=== PATIENT | male | born 1965 | race Caucasian/White ===

== ENCOUNTER 2018-06-10 10:49 | Observation (INO) ==
--- NOTE | 2018-05-31 08:51 | PAT Medication Instructions ---
Medication Instructions Date of Service May 31, 2018 Home Medications cimetidine 400 mg PO DAILY NEEDED clonazepam 1 mg PO TID fluticasone 2 spray INTRANASAL QAM hydroxyzine HCl 25 mg PO Q12 NEEDED Tylenol-Codeine #3 1 tab PO QAM DO NOT take the morning of surgery hydroxyzine HCl 25 mg PO Q12 NEEDED fluticasone 2 spray INTRANASAL QAM Take morning of surgery With a small sip of water, OTHERWISE NOTHING TO EAT OR DRINK AFTER MIDNIGHT: clonazepam 1 mg PO TID cimetidine 400 mg PO DAILY NEEDED Tylenol-Codeine #3 1 tab PO QAM (stop 4 hours before surgery) Take evening before surgery hydroxyzine HCl 25 mg PO Q12 NEEDED clonazepam 1 mg PO TID Other Notes If you have any questions please call us at [phone] or [phone] or [phone] or [phone]
--- NOTE | 2018-05-31 10:10 | Anesthesiology Consultation ---
Date of Service May 31, 2018 Assessment & Plan (1) Encounter for pre-operative examination: Chart Review Chart Review: Acceptable Risk for Surgery and Patient seen in Pre Admission Testing Consults Requested none Teaching & Discussion Pre-Anesthesia Teaching/Discussion Notes: Instructed NPO after midnight before surgery, except medications with 15 cc of water. Medication instructions provided according to the PAT guidelines. History Surgery Operation Date: 06/10/18 07:30 Proposed Procedures p L5-S1 Discectomy - Edward Rich DO Height/Weight Height: 6 ft Weight: 95.6 kg Allergies Allergy/AdvReac Type Severity Reaction Status Date / Time pantoprazole Allergy Severe LEFT SIDED Verified 05/30/18 08:07 CHEST PAIN paroxetine Allergy Severe SHORTNESS Verified 05/30/18 08:07 OF BREATH tramadol Allergy Severe HEAD Verified 05/30/18 08:07 SWELLS, SEES HALO amoxicillin Allergy Mild CHEST Verified 05/30/18 08:07 TIGHTNESS Cipro Allergy Mild UNKNOWN Verified 04/11/16 08:40 ciprofloxacin Allergy Mild UNKNOWN Verified 05/30/18 08:07 citalopram Allergy Mild ANXIETY Verified 05/30/18 08:07 povidone-iodine Allergy Mild RASH WITH Verified 05/30/18 08:07 TOPICAL BETADINE clarithromycin Allergy Unknown PT DOESN'T Verified 05/30/18 08:07 KNOW nizatidine Allergy Unknown GI SYMPTOMS Verified 05/30/18 08:07 NSAIDS (Non-Steroidal Allergy Unknown GI UPSET Verified 05/30/18 08:07 Anti-Inflamma HEART RACES omeprazole Allergy Unknown UNKNOWN Verified 05/30/18 08:07 Penicillins Allergy Unknown HARD TO Verified 05/30/18 08:07 BREATH Quinolones Allergy Unknown PT NOT SURE Verified 05/30/18 08:07 ranitidine Allergy Unknown PT CAN'T Verified 05/30/18 08:07 REMEMBER metronidazole AdvReac Unknown BP Unverified 05/30/18 08:07 ELEVATED DIARRHEA AND ANXIETY Medications Home Medications Medication Instructions Recorded Confirmed Last Taken cimetidine 400 mg PO DAILY PRN 05/28/18 05/30/18 Unknown clonazepam 1 mg PO TID 05/28/18 05/30/18 Unknown fluticasone 2 spray INTRANASAL QAM 05/28/18 05/30/18 Unknown hydroxyzine HCl 25 mg PO Q12 PRN 05/28/18 05/30/18 Unknown Tylenol-Codeine #3 1 tab PO QAM 05/31/18 05/31/18 Unknown Past Medical History Medical History Disc herniation (Acute) Anxiety GERD (gastroesophageal reflux disease) Bradycardia Chronic back pain PAIN TO LEFT LEG History of anesthesia reaction "SLOW TO WAKE UP WITH ANESTHESIA" Migraine Temporomandibular joint disorder RIGHT SIDE CLICKS HAS NEVER LOCKED Tremor WITH ANXIETY PROBLEMS Past Family History Family History Father Family history of diabetes mellitus Sister Family history of diabetes mellitus Past Surgical History Surgical History H/O hand surgery LEFT HAND-THUMB NAIL REMOVAL History of cholecystectomy History of colonoscopy History of cystoscopy History of esophagogastroduodenoscopy (EGD) History of lymph node dissection of left axilla 2/2 CAT SCRATCH FEVER History of tooth extraction WISDOM TEETH Past Anesthesia History No Hx of Anesthesia Complications (STATES THAT HE IS SLOW TO WAKE THOUGH) and No Family Hx of Anesthesia Complications History of PONV Yes Motion Sickness Screening History of Motion Sickness: No Social History Smoking Status: Former smoker Smoking cigarettes per day: FOR A COUPLE MONTHS IN HIS TEENS Do You Dip or Chew Tobacco: Yes (1 CAN A DAY) Hx Alcohol Use: No Hx Substance Use: No substance use type: does not use Exercise / Class Metabolic Activity III < 4 Walking/Shop/Light housework (Normally very active and walks 5 miles per day. Hasn't been able to walk much for the last 4 days due to severe day. Normally able to climb FOS. Denies CP or SOB. ) Review of Systems Patient denies chest pain, shortness of breath, dyspnea on exertion, reflux ( controlled by medications), cough, wheezing, palpitations. +joint pain (back and hips) Physical Exam Vital Signs BP: 129/77 P: 50 R: 20 T: 98.4 SPO2: 99% on RA Constitutional Anxious ENMT Thyromental Distance: > or= 3.5 Finger Breadths (3.5) Mallampati Class: I Neck normal visual inspection and trachea midline; neck extension not limited Respiratory normal respiratory effort Auscultation: lungs clear to auscultation bilaterally Cardiovascular Rate/Rhythm: regular rate and regular rhythm Heart Sounds: no murmur Vessels: no carotid bruit Neurologic moves all extremities Psychiatric Orientation: alert and oriented x 3 Testing Electrocardiogram Date: 05/31/18 Findings: + SB @ (51) Moderate voltage criteria for LVH, may be normal variant. Early repolarization. When compared with ECG of 06/17/10, T-wave amplitude has increased in anterior leads. Chest X-Ray Date: 05/31/18 Findings: + NAD FINDINGS: Cardiomediastinal and hilar silhouettes are within normal limits. No pneumothorax, pleural effusion, focal airspace consolidation or overt pulmonary edema. Degenerative changes of the shoulders and spine. Prior cholecystectomy. IMPRESSION: No acute process. Laboratory Results 05/31/18 10:40 05/31/18 10:40 PT 10.2 Seconds (9.0-12.0) 05/31/18 10:40 INR 1.0 (0.9-1.1) 05/31/18 10:40 APTT 23.1 Seconds (21.0-31.0) 05/31/18 10:40
--- NOTE | 2018-05-31 11:09 | XRay Report ---
XR chest Pre-admission PA/Lat HISTORY: 53 years-old Male pat preoperative exam. No acute chest complaints COMPARISON: Chest radiographs 07/28/2013 TECHNIQUE: PA and lateral views of the chest FINDINGS: Cardiomediastinal and hilar silhouettes are within normal limits. No pneumothorax, pleural effusion, focal airspace consolidation or overt pulmonary edema. Degenerative changes of the shoulders and spin e. Prior cholecystectomy. IMPRESSION: No acute process. The above report was generated using voice recognition software. It may contain grammatical, syntax o r spelling errors. Electronically signed by: Jackson Yang M.D. 05/31/2018 11:08 AM
[2018-05-31 11:45] LABS: Basophils # (auto) 0.01 K/uL (0-0.2); Basophils % (auto) 0.1 %; Eosinophils % (auto) 1.3 %; Immature Granulocytes # (auto) 0.01 K/uL (0.00-0.02); Immature Granulocytes % (auto) 0.1 %; Lymphocytes # (auto) 1.35 K/uL (1.2-3.4); Lymphocytes % (auto) 18.1 %; Mean Corpuscular Hgb Conc 33.3 g/dL (32-36); Mean Corpuscular Volume 92.5 fL (80-100); Mean Platelet Volume 10.9 fL (7.4-10.4); Monocytes # (auto) 0.97 K/uL (0.11-0.59); Neutrophils # (auto) 5.03 K/uL (1.4-6.5); Neutrophils % (auto) 67.4 %; Platelet Count 177 K/uL (130-400); RDW Coefficient of Variation 13.3 % (11.5-14.5); RDW Standard Deviation 45.1 fL (36.4-46.3); Red Blood Count 4.54 M/uL (4.7-6.1); White Blood Count 7.47 K/uL (4.8-10.8)
[2018-05-31 11:53] LABS: BUN Creatinine Ratio 21.9 (10-20); Calcium 8.8 mg/dl (8.5-10.1); Creatinine Clr Calc Pharmacy 99.3 ml/min; Est GFR (African American) 96.1; Est GFR (Non-African American) 82.9; Potassium 4.1 mmol/L (3.5-5.1)
[2018-05-31 12:10] LABS: Partial Thromboplastin Ratio 0.9; Partial Thromboplastin Time 23.1 Seconds (21.0-31.0); Prothrombin Time 10.2 Seconds (9.0-12.0)
--- NOTE | 2018-06-07 12:49 | History and Physical Report ---
DATE OF ADMISSION: 06/10/2018 CHIEF COMPLAINT: Back and lower extremity difficulty. HISTORY OF PRESENT ILLNESS: Ravinder is a pleasant gentleman, 53 years of age. He is compromised. He has a large disc herniation of lumbar spine. He has failed conservative measures. He is set up for surgical intervention of the lumbar spine discectomy, L5-S1. PAST MEDICAL HISTORY: Positive for heart disease, anesthetic issues, anxiety. PAST SURGICAL HISTORY: [place] teeth, thumb surgery, cholecystectomy. ALLERGIES: LISTED. SOCIAL HISTORY: He is single. No alcohol, tobacco. REVIEW OF SYSTEMS: Denies any blurred vision, double vision, tinnitus or vertigo. No chest pain, but does have some palpitations. No asthma, wheezing. No nausea, vomiting. No urgency, frequency. He admits to some numbness and tingling, weakness and muscle pain. He also states that he has a weak immune system. MEDICATIONS: Clonazepam, nasal spray for sinus issues and one medication for stomach ulcers. OBJECTIVE: GENERAL: He is 5 feet 9 inches. He is 232. He is in distress. VITAL SIGNS: Blood pressure 130/80, pulse 80, respirations 16. HEENT: Essentially normal. CARDIAC: Normal S1, S2. No S3. LUNGS: Clear to auscultation. No rales, rhonchi, wheezing. ABDOMEN: Soft, nontender. MUSCULOSKELETAL: He does have some pain with straight leg raising. He has pain with percussion. He has slight loss of sensation. IMAGES: Demonstrated disc herniation, L5-S1. IMPRESSION: Disk herniation, L5-S1. PLAN: Includes instructions, precautions, education and we are scheduling him for surgery. He is well informed. He has been well counseled on the pros and minuses of surgical intervention.
--- NOTE | 2018-06-10 09:24 | History & Physical Bridge Note ---
Date of Service June 10, 2018 History & Physical Bridge Note I have examined the patient, reviewed the History & Physical and in the interval since the performance of the History & Physical I have noted the following changes of clinical significance: no changes noted
[~2018-06-10 10:49] MED LIST: CLINDAMYCIN 600 MG/54 ML BAG IV SCH; LIDOCAINE HCL 2% 2 ML VIAL/AMP(20MG/ML) INFIL ONE; LR 15ML/HR IV SCH; MIDAZOLAM HCL 1 MG/ML 2ML VIAL ONE; ONDANSETRON INJ 2 MG/ML 2 ML VIAL ONE; PROPOFOL IV EMULSION 10 MG/ML 20 ML VIAL IV ONE; ROCURONIUM BROMIDE 10 MG/ML 5 ML VIAL ONE; SODIUM CHLORIDE 0.9% 1000ML IV SCH; fentaNYL citrate 100 MCG/2 ML VIAL ONE
[2018-06-10] MEDS ORDERED: ePHEDrine sulfate 50 MG/ML AMP IV PRN (12:42)
[2018-06-10] MEDS ORDERED: ATROPINE SULFATE 0.1 MG/ML 10ML SYR IV PRN (12:42)
[2018-06-10] MEDS ORDERED: GELATIN SPONGE SZ 100 ONE (12:43)
[2018-06-10] MEDS ORDERED: BACITRACIN INJ 50,000 UNIT VIAL ONE (12:43)
[2018-06-10] MEDS ORDERED: VANCOMYCIN HCL 1000MG/20ML VIAL ONE (12:43)
[2018-06-10] MEDS ORDERED: THROMBIN FOR SOLN 20000 UNIT KIT ONE (12:43)
[2018-06-10] MEDS ORDERED: BUPIVACAINE/EPINEPHRINE 0.5% MPF 1:200,000 30 ML VIAL ONE (12:44)
[2018-06-10] MEDS ORDERED: HYDROmorphone INJ 2 MG/ML SYR/VIAL ONE (13:27)
--- NOTE | 2018-06-10 14:06 | Fluoroscopy Report ---
FL spine 1V any level CLINICAL HISTORY: L5-S1 DISCECTOMY COMPARISON STUDY: Lumbar spine MRI May 28, 2018. FLUOROSCOPY TIME: 1.4 seconds. FLUOROSCOPIC IMAGES: 1 FINDINGS: Single lateral image demonstrates surgical instruments directed toward the posterior alignm ent of the L5-S1 level. IMPRESSION: Fluoroscopic image demonstrating localization of the L5-S1 level. Electronically signed by: David Melara M.D. 06/10/2018 2:04 PM
--- NOTE | 2018-06-10 14:27 | Post Operative Brief Note ---
Immediate Post Op Note v1 Date of Surgery June 10, 2018 Pre & Post Diagnosis Operation Date: 06/10/18 12:40 Pre-Op Diagnosis: Disc Herniation L5-S1 Post-Op Diagnosis: Disc Herniation L5-S1 Procedure Operation Date: 06/10/18 12:40 Actual Procedures p L5-S1 Discectomy(Not Applicable) - Edward Rich DO Surgeon Edward Rich DO Electromedical Equipment Technician nancy Estimated Blood Loss 100 Findings Consistent with Post-Op Diagnosis Drains Hemovac Drain
[2018-06-10] MEDS ORDERED: HYDROmorphone INJ 1 MG/ML SYRINGE ONE (14:55)
[2018-06-10] MEDS: HYDROmorphone INJ 2 MG/ML SYR/VIAL IV PRN ×4 (14:56→15:24)
--- NOTE | 2018-06-10 15:08 | Operative Report ---
DATE OF OPERATION: 06/10/2018 PREOPERATIVE DIAGNOSIS: Disc herniation, lumbar spine, L5-S1. POSTOPERATIVE DIAGNOSIS: Disc herniation, lumbar spine, L5-S1. PROCEDURE: Included laminectomy and discectomy, L5-S1. SURGEON: Edward Rich DO STAFF EDUCATOR: Femi Duval PA-C. COMPLICATIONS: Zero. ESTIMATED BLOOD LOSS: 100. ANESTHETIC: General. DESCRIPTION OF PROCEDURE: The patient was taken to the operating room, a general intubated anesthetic provided to the patient, placed prone, prepped and draped sterile. We made a skin incision, fascial incision, using radiographic criteria and came right down on the L5-S1 interspace. We did an upgoing laminotomy on the left, downgoing foraminotomy exposing the nerve root. We went right off the facet joint. We found the disc at L5-S1. We retracted the dura in a medial direction. It was quite tedious. The disc was massive in its size. We then made an incision, took a good quantity of disc, then piecemealed several other small pieces of disc material. I probed up to the interspace above, down, underneath the nerve root, checked the dura. I looked very carefully and rigorously for any type of free fragment material and we cleaned out the area thought well. I irrigated, closed over vancomycin powder and Hemovac drain with 1 Vicryl suture, 2-0 subcuticular layer, 3-0 nylon on the skin, sterile dressing applied. The patient returned to PACU improved, stable. There were no complications. I attest to the content of the Intraoperative Record and any orders documented therein. Any exception s are noted below.
[2018-06-10] MEDS ORDERED: HYDROmorphone INJ 2 MG/ML SYR/VIAL IV PRN (15:38)
[2018-06-10] MEDS ORDERED: ACETAMINOPHEN 1,000 MG/100 ML VIAL IV ONE (15:38)
[2018-06-10] MEDS ORDERED: ACETAMINOPHEN 1000 MG/100 ML IV IV ONE (15:39)
--- NOTE | 2018-06-10 16:41 | XRay Report ---
XR chest 1V portable CLINICAL HISTORY: sob dyspnea COMPARISON STUDY: 05/31/2018 FINDINGS: The bones soft tissues and hemidiaphragms are normal. The cardiomediastinal silhouette is n ormal. The lungs are clear. The pulmonary vasculature is normal. IMPRESSION: Negative chest. The above report was generated using voice recognition software. It may contain grammatical, syntax or spelling errors. Electronically signed by: Dawit Graves M.D. 06/10/2018 4:39 PM
--- NOTE | 2018-06-10 17:04 | Anesthesiology Progress Note ---
Date of Service June 10, 2018 Anesthesia Post Procedure Vital Signs Vital Signs: Temp Pulse Pulse Resp BP Pulse Ox 06/10/18 16:40 54 L 13 150/93 H 100 06/10/18 16:30 50 L 13 131/88 100 06/10/18 16:20 36.7 C 51 L 13 145/77 H 99 06/10/18 16:10 58 L 21 147/89 H 100 06/10/18 16:00 49 L 13 148/92 H 100 06/10/18 15:50 48 L 16 143/87 H 100 06/10/18 15:40 45 L 15 143/80 H 99 06/10/18 15:30 47 L 15 133/82 99 06/10/18 15:20 56 L 12 135/82 99 06/10/18 15:10 63 15 139/82 100 06/10/18 15:00 65 16 133/78 100 06/10/18 14:50 66 20 142/81 H 100 06/10/18 14:44 36.1 C L 87 13 136/82 100 06/10/18 11:36 36.5 C 50 L 18 120/79 99 Pain Intensity Left Back: Pain Intensity: 6 Lower Back: Pain Intensity: 6 Notes Mental Status: alert / awake / arousable and participated in evaluation Patient Amnestic to Procedure: Yes Nausea / Vomiting: adequately controlled Pain: adequately controlled Airway Patency, RR, SpO2: stable & adequate BP & HR: stable & adequate Hydration State: stable & adequate Anesthetic Complications: no major complications apparent and Pt Satisfied with anesthetic care Notes: Patient states pain is 6/10 in intensity but this is tolerable and he declined any further opioid medications as the dilaudid was making him feel "weird" (patient would not further elaborate). He also c/o shorntess of breath periodically but has had this problem before and attributes it to anxiety ( stated he felt as if he couldn't fully take a deep breath). Patient was not dyspneic, tachypneic and had 100% SpO2 on minimal NC oxygen. RR was between 14- 20. Despite him looking stable, I decided to do a 12 lead ECG, which showed NSR with possible septal infarct. When compared to previous ECG taken 05/31/2018, no major changes were observed. CXR was also done and was read as a negative chest. Patient was awake, conversant and stated he felt well enough to be transferred to the floor.
[2018-06-10] MEDS ORDERED: HYDROmorphone INJ 1 MG/ML SYRINGE IV PRN ×2 (18:22)
[2018-06-10] MEDS ORDERED: MAGNESIUM HYDROXIDE SUSP 30 ML UDC PO PRN (18:22)
[2018-06-10] MEDS ORDERED: CIMETIDINE 400 MG TABLET PO PRN (18:22)
[2018-06-10] MEDS ORDERED: OXYCODONE HCL IR 5 MG TAB (IMMEDIATE RELEASE) PO PRN ×2 (18:22)
[2018-06-10] MEDS ORDERED: clonazePAM 1 MG TAB PO PRN (18:22)
[2018-06-10] MEDS ORDERED: ONDANSETRON INJ 2 MG/ML 2 ML VIAL IV PRN (18:22)
[2018-06-10] MEDS ORDERED: COUGH DROP (SUGAR FREE) LOZ 24 LOZ/1 BOX BUCCAL STA (19:19)
[2018-06-10] MEDS ORDERED: COUGH DROP (SUGAR FREE) LOZ 24 LOZ/1 BOX BUCCAL PRN (19:20)
[2018-06-10] MEDS: ACETAMINOPHEN 1,000 MG/100 ML VIAL IV SCH (19:21)
[2018-06-10] MEDS ORDERED: SODIUM CHLORIDE 0.9% 1000ML 1,000 ML IV SCH (20:00)
[2018-06-10] MEDS: dexAMETHasone 6 MG in SYRINGE 0 ML IV SCH (21:00)
[2018-06-10] MEDS: CLINDAMYCIN 600 MG in DEXTROSE 5% 50 ML IV SCH (21:00)
[2018-06-10] MEDS: DOCUSATE SODIUM 100 MG CAP PO SCH (21:01)
[2018-06-11] MEDS ORDERED: LIDOCAINE 2% JELLY 5 ML TUBE EXT ONE (01:51)
[2018-06-11] MEDS ORDERED: LIDOCAINE 2% JELLY 5 ML TUBE ONE (01:55)
[2018-06-11] MEDS: dexAMETHasone 6 MG in SYRINGE 0 ML IV SCH ×2 (04:55→11:49)
[2018-06-11] MEDS: ACETAMINOPHEN 1,000 MG/100 ML VIAL IV SCH (04:55)
[2018-06-11] MEDS: CLINDAMYCIN 600 MG in DEXTROSE 5% 50 ML IV SCH (05:38)
--- NOTE | 2018-06-11 08:39 | Discharge Summary ---
DATE OF DISCHARGE: 06/11/18 He is alert, oriented, bed rest this morning. He has no pain. No calf pain, shortness of breath, chest pain. No confusion. He is alert, oriented. He has had an uneventful hospital course post lumbar spine discectomy. PLAN: We will discharge him home later today. He has a followup appointment. He has [place] on his chart. He has instructions, precautions provided. We will change his dressing prior to discharge.
[2018-06-11] MEDS: DOCUSATE SODIUM 100 MG CAP PO SCH (08:42)
[2018-06-11] MEDS ORDERED: FLUTICASONE PROPIONATE NA SPR 16 GM BTL SCH (09:00)
[2018-06-12] MEDS ORDERED: BISACODYL 5 MG TABEC PO PRN (06:00)
== END 2018-06-11 12:32 | disposition home or self-care (01) ==
LOC: 3E 10:49 → ASU 10:49

== ENCOUNTER 2020-11-18 15:44 | Inpatient (IN) ==
[2020-11-18] MEDS ORDERED: NITROGLYCERIN 2% OINTMENT 30GM TUBE EXT STA (16:02)
--- NOTE | 2020-11-18 16:06 | Emergency Department Note ---
History of Present Illness General Chief complaint: Cardiac Assessment Stated complaint: chest tightness, shortnessof breathe Time Seen by Provider: 11/18/20 15:52 Source: patient History of Present Illness Provider complaint: Chest pain Onset (ago): hour(s) Location: chest Radiation: extremity (Left shoulder) Severity: moderate Pain Consistency: + constant Maximum Pain Intensity: 5 Quality: + other (Tightness and sharp) Relieved By: + none Exacerbated By: + none Associated symptoms: + nausea/vomiting and + shortness of breath; no cough and no fever/chills This is a 55-year-old male who presents with chest pain just prior to arrival. Patient states that he was mowing the lawn, came back in the house, showered and then ate something for lunch and then suddenly developed chest pain. He describes it as initially a tightness in his chest which then became sharp. It did radiate to his left shoulder. It was associated with rapid beating of his heart up to 117 bpm and shortness of breath. He was also nauseated but he did not throw up. He states he does have a history of panic disorder but this did not feel like a panic attack to him. He states that he has not been exerting himself very much over the past month because he has had problems with his lower back. He was placed on prednisone recently and stopped it 2 days ago as it was giving him headaches and making his lungs feel like they were burning and upsett ing his stomach. He denies any leg swelling or pain other than his radicular pain on the left side. He has had no history of PE or DVT. He called his doctor who advised him to come to the emergency department. He denies any fever, cough or cold symptoms, abdominal pain or urinary symptoms. Home Medications Medication Instructions Recorded Confirmed Type cimetidine 400 mg PO DAILY PRN 05/28/18 11/18/20 History clonazepam 1 mg PO TID PRN 05/28/18 11/18/20 History fluticasone propionate 2 spray INTRANASAL QAM 05/28/18 11/18/20 History hydroxyzine HCl 25 mg PO Q12 PRN 05/28/18 11/18/20 History acetaminophen-codeine 1 tab PO Q6 PRN 11/10/20 11/18/20 History dicyclomine 10 mg PO TID PRN 11/10/20 11/18/20 History Allergies Allergy/AdvReac Type Severity Reaction Status Date / Time pantoprazole Allergy Severe LEFT SIDED Verified 11/18/20 17:09 CHEST PAIN paroxetine Allergy Severe SHORTNESS Verified 11/18/20 17:09 OF BREATH Penicillins Allergy Severe HARD TO Verified 11/18/20 17:09 BREATH prednisone Allergy Severe TONGUE Verified 11/18/20 17:09 SWELLED, TIGHTNESS & BURNING IN CHEST, HEARTBURN. tramadol Allergy Severe HEAD Verified 11/18/20 17:09 SWELLS, SEES HALO amoxicillin Allergy Intermediate CHEST Verified 11/18/20 17:09 TIGHTNESS nizatidine Allergy Intermediate GI SYMPTOMS Verified 11/18/20 17:09 NSAIDS (Non-Steroidal Allergy Intermediate GI UPSET Verified 11/18/20 17:09 Anti-Inflamma HEART RACES ciprofloxacin Allergy Mild UNKNOWN Verified 11/18/20 17:09 citalopram Allergy Mild ANXIETY Verified 11/18/20 17:09 povidone-iodine Allergy Mild RASH WITH Verified 11/18/20 17:09 TOPICAL BETADINE clarithromycin Allergy Unknown PT DOESN'T Verified 11/18/20 17:09 KNOW omeprazole Allergy Unknown UNKNOWN Verified 11/18/20 17:09 Quinolones Allergy Unknown PT NOT SURE Verified 11/18/20 17:09 ranitidine Allergy Unknown PT CAN'T Verified 11/18/20 17:09 REMEMBER metronidazole AdvReac Intermediate BP Verified 11/18/20 17:09 ELEVATED DIARRHEA AND ANXIETY Past Med/Surg History Medical History Anxiety Bradycardia Chronic back pain PAIN TO LEFT LEG Disc herniation GERD (gastroesophageal reflux disease) Migraine Temporomandibular joint disorder RIGHT SIDE CLICKS HAS NEVER LOCKED Tremor WITH ANXIETY PROBLEMS Surgical History H/O hand surgery LEFT HAND-THUMB NAIL REMOVAL History of anesthesia reaction "SLOW TO WAKE UP WITH ANESTHESIA" History of cholecystectomy History of colonoscopy History of cystoscopy History of esophagogastroduodenoscopy (EGD) History of lumbar discectomy History of lymph node dissection of left axilla 2/2 CAT SCRATCH FEVER History of tooth extraction WISDOM TEETH Family History Father Family history of diabetes mellitus Sister Family history of diabetes mellitus Social History Smoking Status: Never smoker Tobacco Type: Smokeless Tobacco (Dip or Chew) Cigarettes Per Day: FOR A COUPLE MONTHS IN HIS TEENS; Second Hand Exposure: No; Hx Alcohol Use: No Hx Substance Use: No Preferred Language: Faroese Communication Ability: Effective Visual Impairment: No Limitations Carpet Technician Required: No Beliefs That Will Affect Care: None Current Living Situation: Parent Feels Safe at Home: Yes Assistive Devices: Walker Review of Systems See HPI for pertinent positives & negatives. and A total of 10 systems reviewed and were otherwise negative Physical Exam Vital Signs Vital Signs - 24 hr 11/18/20 15:46 11/18/20 16:24 11/18/20 16:31 Temperature 36.6 C Temperature Source Skin Pulse Rate 81 60 Pulse Rate [Finger] 66 Pulse Rate from SpO2 Sensor Respiratory Rate 18 8 L 14 Blood Pressure 146/88 H 139/86 Blood Pressure [Left Arm] 133/82 Blood Pressure Mean 107 103 Blood Pressure Mean [Left Arm] 99 Pulse Oximetry 96 96 Oxygen Delivery Method Room Air Sepsis Recent Fever Within 48 Hours No Sepsis New/Unexplained Change in Mental Status No Sepsis Action Taken by Nursing No Action Required 11/18/20 17:00 11/18/20 17:01 11/18/20 17:30 Temperature Temperature Source Pulse Rate 58 L 62 59 L Pulse Rate [Finger] Pulse Rate from SpO2 Sensor 59 L 62 59 L Respiratory Rate 14 11 L 9 L Blood Pressure 125/73 115/72 Blood Pressure [Left Arm] Blood Pressure Mean 90 86 Blood Pressure Mean [Left Arm] Pulse Oximetry 95 94 95 Oxygen Delivery Method Room Air Room Air Sepsis Recent Fever Within 48 Hours Sepsis New/Unexplained Change in Mental Status Sepsis Action Taken by Nursing 11/18/20 18:00 11/18/20 18:30 11/18/20 19:01 Temperature Temperature Source Pulse Rate 53 L 53 L 56 L Pulse Rate [Finger] Pulse Rate from SpO2 Sensor 53 L 52 L Respiratory Rate 11 L 14 16 Blood Pressure 128/76 106/66 114/74 Blood Pressure [Left Arm] Blood Pressure Mean 93 79 87 Blood Pressure Mean [Left Arm] Pulse Oximetry 95 95 95 Oxygen Delivery Method Room Air Room Air Sepsis Recent Fever Within 48 Hours Sepsis New/Unexplained Change in Mental Status Sepsis Action Taken by Nursing 11/18/20 19:30 Temperature Temperature Source Pulse Rate 54 L Pulse Rate [Finger] Pulse Rate from SpO2 Sensor 56 L Respiratory Rate 17 Blood Pressure 119/66 Blood Pressure [Left Arm] Blood Pressure Mean 83 Blood Pressure Mean [Left Arm] Pulse Oximetry 96 Oxygen Delivery Method Room Air Sepsis Recent Fever Within 48 Hours Sepsis New/Unexplained Change in Mental Status Sepsis Action Taken by Nursing Constitutional: Vital signs reviewed. Eyes: Pupils are equal round reactive to light. Conjunctiva are noninjected. ENT: Pharynx is clear without erythema or exudate. Mucous membranes are moist. Neck supple without meningeal signs. Respiratory: Clear to auscultation bilaterally. Breath sounds are equal bilaterally. Cardiovascular: Regular rate and rhythm. No rubs or gallops. GI: Soft, nondistended and nontender. Bowel sounds are present. Musculoskeletal: No peripheral edema. No lower extremity tenderness. Integumentary: No cyanosis. or jaundice. Neurological: The patient is awake and alert. No focal deficits. Psychiatric: Anxious. Course Administered Medications Discontinued Medications Clonazepam (Clonazepam 1 Mg Tab) 1 mg PO NOW STA Stop: 11/18/20 19:11 Last Admin: 11/18/20 19:25 Dose: 1 mg Documented by: [id number] Fentanyl Citrate (Fentanyl Citrate 100 Mcg/2 Ml Vial) 50 mcg IV NOW STA Stop: 11/18/20 17:43 Last Admin: 11/18/20 17:50 Dose: 50 mcg Documented by: [id number] Nitroglycerin (Nitroglycerin 2% Ointment 30gm Tube) 0.5 inch EXT NOW STA Stop: 11/18/20 16:03 Last Admin: 11/18/20 16:27 Dose: 0.5 inch Documented by: [id number] Ondansetron HCl (Ondansetron Inj 2 Mg/Ml 2 Ml Vial) 4 mg IV NOW STA Stop: 11/18/20 17:43 Last Admin: 11/18/20 17:50 Dose: 4 mg Documented by: [id number] Medical Decision Making Differential Diagnosis Unstable angina, PR, GERD, anxiety, PE Medical Records Attestation: I reviewed the patient's medical records. I did perform a limited focused review of portions of the patient's old chart on the electronic medical record. The patient was seen here in October 27 and for low back pain. Home Medications Current Medication List: was personally reviewed by me Laboratory Data Attestation: I reviewed the patient's lab results. Result diagrams: 11/18/20 16:21 11/18/20 16:21 Lab Results 11/18/20 11/18/20 11/18/20 Range/Units 16:21 16:21 16:21 WBC 13.30 H (4.8-10.8) K/uL RBC 4.81 (4.7-6.1) M/uL Hgb 15.3 (14.0-18.0) g/dL Hct 43.7 (42-52) % MCV 90.9 (80-100) fL MCH 31.8 (25-34) pg MCHC 35.0 (32-36) g/dL RDW Std Deviation 42.7 (36.4-46.3) fL RDW Coeff of Adele 12.9 (11.5-14.5) % Plt Count 208 (130-400) K/uL MPV 10.1 (7.4-10.4) fL Immature Gran % (Auto) 2.0 % Neut % (Auto) 68.5 % Lymph % (Auto) 21.1 % Dooly % (Auto) 7.4 % Eos % (Auto) 0.8 % Baso % (Auto) 0.2 % Neut # (Auto) 9.12 H (1.4-6.5) K/uL Lymph # (Auto) 2.80 (1.2-3.4) K/uL Dooly # (Auto) 0.99 H (0.11-0.59) K/uL Eos # (Auto) 0.10 (0-0.5) K/uL Baso # (Auto) 0.02 (0-0.2) K/uL Immature Gran # (Auto) 0.27 H (0.00-0.02) K/uL APTT 21.4 (21.0-31.0) Seconds PTT Ratio 0.8 D-Dimer 360 (0-500) ug/L FEU Sodium 142 (136-145) mmol/L Potassium 3.4 L (3.5-5.1) mmol/L Chloride 106 (98-107) mmol/L Carbon Dioxide 29 (21-32) mmol/L Anion Gap 7.0 (3-11) BUN 19 H (7-18) mg/dl Creatinine 1.20 (0.6-1.4) mg/dl Est Cr Clr Drug Dosing 87.4 ml/min Est GFR ( Amer) 77.9 ml/min Est GFR (Non-Af Amer) 67.2 ml/min BUN/Creatinine Ratio 15.5 (10-20) Glucose 109 H (70-99) mg/dl Calcium 8.5 (8.5-10.1) mg/dl Total Bilirubin 0.4 (0.2-1) mg/dl AST 24 (15-37) U/L ALT 40 (12-78) U/L Alkaline Phosphatase 73 (45-117) U/L Troponin I < 0.015 (0-0.045) ng/ml Total Protein 7.1 (6.4-8.2) gm/dl Albumin 3.7 (3.4-5.0) gm/dl Globulin 3.4 (2.5-4.0) gm/dl Albumin/Globulin Ratio 1.1 (0.9-2) Lipase 226 (73-393) U/L COVID-19 Eval Order SARS-CoV-2 (PCR) (Negative) 11/18/20 11/18/20 Range/Units 18:41 18:41 WBC (4.8-10.8) K/uL RBC (4.7-6.1) M/uL Hgb (14.0-18.0) g/dL Hct (42-52) % MCV (80-100) fL MCH (25-34) pg MCHC (32-36) g/dL RDW Std Deviation (36.4-46.3) fL RDW Coeff of Adele (11.5-14.5) % Plt Count (130-400) K/uL MPV (7.4-10.4) fL Immature Gran % (Auto) % Neut % (Auto) % Lymph % (Auto) % Dooly % (Auto) % Eos % (Auto) % Baso % (Auto) % Neut # (Auto) (1.4-6.5) K/uL Lymph # (Auto) (1.2-3.4) K/uL Dooly # (Auto) (0.11-0.59) K/uL Eos # (Auto) (0-0.5) K/uL Baso # (Auto) (0-0.2) K/uL Immature Gran # (Auto) (0.00-0.02) K/uL APTT (21.0-31.0) Seconds PTT Ratio D-Dimer (0-500) ug/L FEU Sodium (136-145) mmol/L Potassium (3.5-5.1) mmol/L Chloride (98-107) mmol/L Carbon Dioxide (21-32) mmol/L Anion Gap (3-11) BUN (7-18) mg/dl Creatinine (0.6-1.4) mg/dl Est Cr Clr Drug Dosing ml/min Est GFR ( Amer) ml/min Est GFR (Non-Af Amer) ml/min BUN/Creatinine Ratio (10-20) Glucose (70-99) mg/dl Calcium (8.5-10.1) mg/dl Total Bilirubin (0.2-1) mg/dl AST (15-37) U/L ALT (12-78) U/L Alkaline Phosphatase (45-117) U/L Troponin I (0-0.045) ng/ml Total Protein (6.4-8.2) gm/dl Albumin (3.4-5.0) gm/dl Globulin (2.5-4.0) gm/dl Albumin/Globulin Ratio (0.9-2) Lipase (73-393) U/L COVID-19 Eval Order Covid19 at [facility], [place] SARS-CoV-2 (PCR) NEGATIVE (Negative) Imaging Data Radiologist's Impression: Chest X-Ray 11/18/20 16:02 XR chest 1V portable CLINICAL HISTORY: Atypical chest pain COMPARISON STUDY: 06/10/2018 FINDINGS: The cardiac and mediastinal contours are normal. There is no evidence of focal pulmonary consolidation. There is no evidence of failure. No pleural effusions are visualized.[ IMPRESSION: No active disease in the chest. ACT 112: Negative or not required by law. Electronically signed by: Max Li M.D. 11/18/2020 4:21 PM ECG Data Attestation: I personally reviewed and interpreted this ECG as follows: Indication: + chest pain Rate (beats per minute): 68 Rhythm: + normal sinus ECG ST segments: + Nonspecific ST abnormalities ECG Findings: + Q waves; no PVCs Comparison ECG Date: from (June 10, 2018) Change: no significant change MDM Narrative I did evaluate the patient as noted above. The patient is presenting with sudden onset of chest pain after mowing his lawn today. He is currently having chest pain and some shortness of breath. He describes the pain as a tightness. IV access was established. I did place an order for continuous cardiac monitoring. The monitor showed normal sinus rhythm at a rate of 62 bpm. I did order and personally review the patient's 12-lead EKG as described above. He has no acute ischemic changes. I did order and personally reviewed the images of the patient's chest x-ray as described above. There is no acute process. I did order and review the patient's blood work as noted in the electronic medical record. CBC demonstrates a white count of 13.3. He was recently on prednisone and so this is likely from the medication. He denies any infectious symptoms. He has a normal hemoglobin and platelet count. Electrolytes demonstrate a mild hypokalemia. D-dimer and troponin are both negative. I did discuss the test results with the patient. I did treat the patient with nitroglycerin paste. His symptoms improved but he still had pain and so he was given fentanyl 50 mcg IV and Zofran 4 mg IV. He did feel better afterwards. I did recommend hospitalization for repeat cardiac biomarkers and further evaluation. The patient was agreeable. He became very anxious thinking about missing his appointment tomorrow as he was supposed to talk to his doctor about scheduling an outpatient MRI. I did explain to them that the inpatient hospitalist would be able to likely help him with this situation. He was given his normal dose of Klonopin 1 mg p.o. I did discuss case with the hospitalist and child welfare caseworker. Impression & Plan Chest pain, Low back pain, Anxiety Discharge Plan Visit Data Chief Complaint: Cardiac Assessment Stated Complaint: chest tightness, shortnessof breathe ED Provider: Amado Porter Discharge Problem: Chest pain, Low back pain, Anxiety Patient Disposition: Being Evaluated by Hospitalist Forms Stand Alone Forms: My [facility] Prescriptions Prescriptions: No Action clonazepam 1 mg tablet 1 mg PO TID PRN (Reason: Anxiety) RF: 0 cimetidine 400 mg tablet 400 mg PO DAILY PRN (Reason: Heartburn) RF: 0 hydroxyzine HCl 25 mg tablet 25 mg PO Q12 PRN (Reason: severe anxiety) RF: 0 fluticasone propionate 50 mcg/actuation spray,suspension 2 spray Intranasal QAM RF: 0 acetaminophen-codeine 300-30 mg tablet 1 tab PO Q6 PRN (Reason: Pain, Mild) RF: 0 dicyclomine 10 mg capsule 10 mg PO TID PRN (Reason: as directed) RF: 0 Referrals Referrals: Chacorta Vegas MD [Primary Care Provider] - Discharge Problem: Chest pain Qualifiers: Chest pain type: unspecified Qualified Code(s): R07.9 - Chest pain, unspecified Low back pain Qualifiers: Chronicity: acute Back pain laterality: left Sciatica presence: with sciatica Sciatica laterality: sciatica of left side Qualified Code(s): M54.42 - Lumbago with sciatica, left side
--- NOTE | 2020-11-18 16:23 | XRay Report ---
XR chest 1V portable CLINICAL HISTORY: Atypical chest pain COMPARISON STUDY: 06/10/2018 FINDINGS: The cardiac and mediastinal contours are normal. There is no evidence of focal pulmonary co nsolidation. There is no evidence of failure. No pleural effusions are visualized.[ IMPRESSION: No active disease in the chest. ACT 112: Negative or not required by law. Electronically signed by: Max Li M.D. 11/18/2020 4:21 PM
[2020-11-18 16:36] LABS: Basophils # (auto) 0.02 K/uL (0-0.2); Basophils % (auto) 0.2 %; Eosinophils % (auto) 0.8 %; Hematocrit (blood only) 43.7 % (42-52); Hemoglobin 15.3 g/dL (14.0-18.0); Immature Granulocytes # (auto) 0.27 K/uL (0.00-0.02); Lymphocytes % (auto) 21.1 %; Mean Corpuscular Hemoglobin 31.8 pg (25-34); Mean Corpuscular Volume 90.9 fL (80-100); Mean Platelet Volume 10.1 fL (7.4-10.4); Monocytes # (auto) 0.99 K/uL (0.11-0.59); Monocytes % (auto) 7.4 %; Neutrophils # (auto) 9.12 K/uL (1.4-6.5); Neutrophils % (auto) 68.5 %; Platelet Count 208 K/uL (130-400); RDW Coefficient of Variation 12.9 % (11.5-14.5); RDW Standard Deviation 42.7 fL (36.4-46.3); Red Blood Count 4.81 M/uL (4.7-6.1)
[2020-11-18 16:59] LABS: Glucose 109 mg/dl (70-99)
[2020-11-18 17:00] LABS: Alanine Aminotransferase 40 U/L (12-78); Albumin Globulin Ratio 1.1 (0.9-2); Albumin Level 3.7 gm/dl (3.4-5.0); Alkaline Phosphatase 73 U/L (45-117); Aspartate Aminotransferase 24 U/L (15-37); BUN Creatinine Ratio 15.5 (10-20); Bilirubin,Total 0.4 mg/dl (0.2-1); Blood Urea Nitrogen 19 mg/dl (7-18); Calcium 8.5 mg/dl (8.5-10.1); Carbon Dioxide 29 mmol/L (21-32); Chloride 106 mmol/L (98-107); Creatinine Clr Calc Pharmacy 87.4 ml/min; Est GFR (African American) 77.9 ml/min; Est GFR (Non-African American) 67.2 ml/min; Globulin 3.4 gm/dl (2.5-4.0); Lipase 226 U/L (73-393); Potassium 3.4 mmol/L (3.5-5.1); Sodium 142 mmol/L (136-145); Total Protein 7.1 gm/dl (6.4-8.2); Troponin I < 0.015 ng/ml (0-0.045)
[2020-11-18 17:38] LABS: D Dimer 360 ug/L FEU (0-500); Partial Thromboplastin Ratio 0.8; Partial Thromboplastin Time 21.4 Seconds (21.0-31.0)
[2020-11-18] MEDS ORDERED: fentaNYL citrate 100 MCG/2 ML VIAL IV STA (17:42)
[2020-11-18] MEDS ORDERED: ONDANSETRON INJ 2 MG/ML 2 ML VIAL IV STA (17:42)
[2020-11-18] MEDS ORDERED: clonazePAM 1 MG TAB PO STA (19:10)
[2020-11-19] MEDS ORDERED: hydrOXYzine HCl 25 MG TAB PO PRN (00:23)
[2020-11-19] MEDS ORDERED: POLYETHYLENE (MIRALAX) 17 GM PACK PO PRN (00:23)
[2020-11-19] MEDS ORDERED: NITROGLYCERIN SL 0.4 MG/TAB TAB SL PRN (00:23)
[2020-11-19] MEDS ORDERED: DICYCLOMINE HCL 10 MG CAP PO PRN (00:23)
[2020-11-19] MEDS ORDERED: ACETAMINOPHEN 325 MG TAB PO PRN (00:23)
[2020-11-19] MEDS ORDERED: ACETAMINOPHEN W/CODEINE #3 1 TAB PO PRN (00:23)
[2020-11-19] MEDS ORDERED: clonazePAM 1 MG TAB PO PRN (00:23)
[2020-11-19] MEDS ORDERED: FAMOTIDINE 20 MG TAB PO PRN (00:35)
--- NOTE | 2020-11-19 00:56 | History and Physical Report ---
DATE OF ADMISSION: 11/18/2020. CHIEF COMPLAINT: Chest pain and back pain. HISTORY OF PRESENT ILLNESS: A 55-year-old male with past medical history significant for nonallergic rhinitis; hypertension; history of sinus bradycardia; internal hemorrhoids; history of migraines; history of chest pain, noncardiac; obesity; generalized anxiety; allergy to radiographic contrast media,presents with chest pain. The patient says he is dealing with his back pain, has severe back pain. He was recently started on prednisone, took 4 to 5 days of prednisone. He says prednisone gave him pressure in his head and also not feeling well and some stomach discomfort and it was stooped patient yesterday. He is supposed to get MRI scan and for that he is supposed to follow up with his family doctor tomorrow to get approved by insurance.But today after mowing his grass he did fine, went back home, and after he ate sandwich he developed chest pressure radiating to left shoulder and arm. No dizziness, no nausea, no sweating. Apparently also had felt palpitations, so that is why he came to the hospital. Here initial workup is negative. Currently, pain is resolved, but he is most worried about his back pain. So initially he wanted to get discharged and wanted to go and follow up with his family doctor tomorrow for working out to get his MRI scan, but he agreed to stay when also said we will try to workup for his back pain too. Hemodynamically stable. Denies any headache, no blurred visions, no earache, no runny nose, no sore throat, no cough, no fevers. Appetite okay. Ambulating okay, but he has pain in his back and hips. Normal bowel and bladder movements. ALLERGIES: TO PROTONIX, PAROXETINE, PENICILLINS, PREDNISONE, TRAMADOL, AMOXICILLIN, NIZATIDINE, NSAIDS, CIPROFLOXACIN, CITALOPRAM, POVIDINE- IODINE, CLARITHROMYCIN, OMEPRAZOLE, QUINOLONES, RANITIDINE, METRONIDAZOLE. PAST MEDICAL HISTORY: As mentioned above. PAST SURGICAL HISTORY: Excision of abdominal wall subcutaneous tumor, cardiac catheterization, colonoscopy, cystoscopy, EGD, EGD with biopsy, EGD with endoscopic ultrasound, hand finger surgery, lumbar spine injection, lymph node removed from left elbow area, wisdom tooth removed, cholecystectomy, tonsillectomy, adenoidectomy, sinus surgery, right knee subcutaneous tumor resection, tympanostomy tubes. MEDICATIONS: The patient is on acetaminophen with codeine 1 tablet p.o. q. 6 hours p.r.n., cimetidine 400 mg p.o. daily p.r.n., Klonopin 1 mg p.o. t.i.d. p.r.n., dicyclomine 10 mg p.o. t.i.d. p.r.n., Flonase 2 sprays intranasal a.m., hydroxyzine 25 mg p.o. q. 12 hours p.r.n. FAMILY HISTORY: Significant for sister has allergies, diabetes, hypertension; father has diabetes, hypertension; paternal grandfather has stroke, heart disorder; paternal grandmother has cancer. SOCIAL HISTORY: Single. Chews tobacco 4-5 times a week. No alcohol use. No drug use. REVIEW OF SYSTEMS: As per HPI. Rest of the review of systems is negative. PHYSICAL EXAMINATION: GENERAL: The patient is obese, not in acute distress. VITAL SIGNS: Temperature 36.6, pulse 58, respiratory rate 14, blood pressure 108/71, oxygen 95% on room air. HEENT: Pupils are equal, round and reactive to light. Oral mucosa moist. NECK: No JVD. No masses. CARDIOVASCULAR: S1 and S2 heard. Regular rate and rhythm. No murmur, no gallop. RESPIRATORY SYSTEM: Normal AP diameter. No accessory muscles use. No wheezing, no crackles. ABDOMEN: Soft, bowel sounds present. Nontender. No distention. CENTRAL NERVOUS SYSTEM: Cranial nerves II-XII grossly intact, nonfocal. EXTREMITIES: No edema, no erythema. LABORATORY DATA: WBC 13.3, hemoglobin 15.3, hematocrit 43.7, platelets 208. APTT 21.4, PTT 0.8. D-dimer 360. Sodium 142, potassium 3.4, chloride 106, bicarbonate 29, BUN 19, creatinine 1.2, serum glucose 109, calcium 8.5, total bilirubin 0.4, AST 24, ALT 40, alkaline phosphatase 73. Troponin I less than 0.015. Lipase 226. SARS-CoV-2 PCR negative. IMAGING DATA: Chest x-ray, no acute disease in the chest. EKG: Normal sinus rhythm at a rate of 68, nonspecific ST changes in the anterior leads. ASSESSMENT AND PLAN: This is a 55-year-old male who presents with chest pain. 1. Chest pain: Initial workup negative. Rule out ACS. Risk factor of age, obesity. Will follow serial enzymes, repeat EKG, and echocardiogram in the a.m. N.p.o. after midnight. Consult cardiology in the a.m. for further recommendations. 2. Severe back pain: Ongoing for some time limiting his ambulatory status. Supposed to get MRI scan. Working out to get MRI scan. Will consult orthopedics in a.m. 3. Generalized anxiety disorder: Continue his home medications. 4. Hypertension: Currently not on any medications. We will follow blood pressure in the hospital. 5. Deep venous thrombosis prophylaxis: Sequential compression devices. DISPOSITION: Monitor in the [employer] tele. PT/OT prior to discharge. Social service to help with discharge planning. Level 1 full code. Job ID: [id number] MTDD
[2020-11-19] MEDS ORDERED: LORazepam 0.25 MG/0.5 ML VIAL IV STA (02:18)
[2020-11-19 05:50] LABS: Basophils # (auto) 0.01 K/uL (0-0.2); Basophils % (auto) 0.1 %; Eosinophils # (auto) 0.16 K/uL (0-0.5); Eosinophils % (auto) 1.4 %; Immature Granulocytes # (auto) 0.23 K/uL (0.00-0.02); Lymphocytes # (auto) 2.49 K/uL (1.2-3.4); Lymphocytes % (auto) 21.2 %; Mean Corpuscular Hemoglobin 30.6 pg (25-34); Mean Corpuscular Hgb Conc 33.3 g/dL (32-36); Mean Corpuscular Volume 91.8 fL (80-100); Monocytes # (auto) 1.22 K/uL (0.11-0.59); Monocytes % (auto) 10.4 %; Neutrophils # (auto) 7.65 K/uL (1.4-6.5); Neutrophils % (auto) 64.9 %; Platelet Count 173 K/uL (130-400); RDW Coefficient of Variation 13.4 % (11.5-14.5); RDW Standard Deviation 44.5 fL (36.4-46.3); Red Blood Count 4.25 M/uL (4.7-6.1); White Blood Count 11.76 K/uL (4.8-10.8)
[2020-11-19 06:31] LABS: Blood Urea Nitrogen 20 mg/dl (7-18); Calcium 8.2 mg/dl (8.5-10.1); Carbon Dioxide 31 mmol/L (21-32); Chloride 105 mmol/L (98-107); Chol HDL Ratio 5; Cholesterol 130 mg/dl (0-200); Creatinine Clr Calc Pharmacy 104.4 ml/min; Est GFR (African American) 95.9 ml/min; Est GFR (Non-African American) 82.8 ml/min; Glucose 87 mg/dl (70-99); HDL Cholesterol 29 mg/dl; LDL Cholesterol Calculated 80 mg/dl; Magnesium 2.5 mg/dl (1.8-2.4); Potassium 4.2 mmol/L (3.5-5.1); Sodium 141 mmol/L (136-145); Triglycerides 105 mg/dl (0-150); Troponin I < 0.015 ng/ml (0-0.045); VLDL Cholesterol 21 mg/dl
--- NOTE | 2020-11-19 06:36 | Electrocardiogram Report ---
Test Reason : Blood Pressure : / mmHG Vent. Rate : 068 BPM Atrial Rate : 068 BPM P-R Int : 168 ms QRS Dur : 088 ms QT Int : 378 ms P-R-T Axes : 052 019 020 degrees QTc Int : 401 ms Normal sinus rhythm Possible Left atrial enlargement Septal infarct (cited on or before 10-JUN-2018) Nonspecific T wave abnormality Abnormal ECG When compared with ECG of 10-JUN-2018 16:41, Nonspecific T wave abnormality has replaced inverted T waves in Inferior leads Nonspecific T wave abnormality now evident in Anterolateral leads Confirmed by Kelton Mayorga ([id number]) on 11/19/2020 6:35:46 AM Referred By: Confirmed By:Kelton Mayorga
--- NOTE | 2020-11-19 08:07 | Hospitalist Progress Note ---
Date of Service November 19, 2020 Assessment & Plan (1) Chest pain: (2) Low back pain: This is a 55-year-old male who presents with chest pain. 1. Chest pain: Initial workup negative. Rule out ACS. Risk factor of age, obesity. Will follow serial enzymes - Troponin x3 negative. repeat EKG Echocardiogram - LV is normal in size. There is moderate concentric LVH. LV wall motion is normal. EF 60 to 65%. There is trace mitral regurg. There is trace tricuspid regurg. Cardiology consulted for further recommendations - No signs of acute injury or ischemia with findings likely exacerbated by recent oral prednisone treatment. Complete evaluation post hospitalization with Lexiscan stress nuclear imaging. Patient previously unable to walk to diagnostic heart rate levels on treadmill now substantially limited by back pain, poorly tolerant of dobutamine stress testing. Message sent to schedule 2. Severe back pain: Ongoing for some time limiting his ambulatory status. Presented on 10/27 and on 11/10 at ED, at that time CT was obtained showing Posterior decompression at the L5-S1 level. Mild to moderate central canal stenosis at L4-L5, suboptimally assessed by CT. He was prescribed prednisone which helped somewhat with back pain but also caused significant stomach and chest discomfort. Pt reported that he was supposed to get MRI scan, to be scheduled by PCP . Working out to get MRI scan. Orthopedics consulted - discussed w/ Dr. Cooley, will obtain MRI of lumbar spine 3. Generalized anxiety disorder: Continue his home medications. 4. Hypertension: Currently not on any medications. We will follow blood pressure in the hospital. DVT prophylaxis: Sequential compression devices. DISPOSITION: med tele. PT/OT prior to discharge. Social service to help with discharge planning. Admission and Anticipated Discharge Date Admission Date: November 18, 2020 Subjective Patient seen in follow-up of back pain and chest pain Currently sitting up in the bed, in no acute distress, reports having back pain for some time He was admitted due to chest pain, seems that patient developed chest discomfort after taking prednisone, initially prescribed for back pain Seen by cardiology earlier today Patient otherwise denies any dizziness, shortness of breath, fevers. reports that chest discomfort has mostly resolved Review of Systems Review of Systems: All systems reviewed & are unremarkable except as noted in HPI & below Constitutional: no fever and no chills Respiratory: no cough and no dyspnea Cardiovascular: no chest pain and no palpitations Gastrointestinal: no abdominal pain, no nausea and no vomiting Physical Exam Physical Exam: GENERAL: WD/WN M, not in acute distress. HEENT: NC/AT, Pupils are equal, round and reactive to light. Oral mucosa moist. NECK: No JVD. No masses. CARDIOVASCULAR: S1 and S2 heard. Regular rate and rhythm. No murmur, no gallop. RESPIRATORY: Normal AP diameter. No accessory muscles use. No wheezing, no crackles. CTAB. ABDOMEN: Soft, bowel sounds present. Nontender. No distention. NEURO: alert and oriented x3, speech fluent, no facial asymmetry, moves extremities EXTREMITIES: No edema, no erythema. Results & Data Results & Data ([facility]) Vital Signs (Past 12 Hours) Vital Signs Temp Pulse Pulse Resp BP BP Pulse Ox 11/19/20 07:29 46 L 11/19/20 04:00 36.6 C 66 18 113/65 95 11/19/20 03:38 42 L 11/19/20 01:36 36.5 C 43 L 18 128/73 98 11/18/20 21:31 58 L 14 108/71 95 11/18/20 20:35 57 L 14 121/80 97 Laboratory Results 11/19/20 11/19/20 11/18/20 Range/Units 05:20 05:20 18:41 WBC 11.76 H (4.8-10.8) K/uL RBC 4.25 L (4.7-6.1) M/uL Hgb 13.0 L (14.0-18.0) g/dL Hct 39.0 L (42-52) % MCV 91.8 (80-100) fL MCH 30.6 (25-34) pg MCHC 33.3 (32-36) g/dL RDW Std Deviation 44.5 (36.4-46.3) fL RDW Coeff of Adele 13.4 (11.5-14.5) % Plt Count 173 (130-400) K/uL MPV 10.0 (7.4-10.4) fL Immature Gran % (Auto) 2.0 % Neut % (Auto) 64.9 % Lymph % (Auto) 21.2 % [place] % (Auto) 10.4 % Eos % (Auto) 1.4 % Baso % (Auto) 0.1 % Neut # (Auto) 7.65 H (1.4-6.5) K/uL Lymph # (Auto) 2.49 (1.2-3.4) K/uL [place] # (Auto) 1.22 H (0.11-0.59) K/uL Eos # (Auto) 0.16 (0-0.5) K/uL Baso # (Auto) 0.01 (0-0.2) K/uL Immature Gran # (Auto) 0.23 H (0.00-0.02) K/uL APTT (21.0-31.0) Seconds PTT Ratio D-Dimer (0-500) ug/L FEU Sodium 141 (136-145) mmol/L Potassium 4.2 D (3.5-5.1) mmol/L Chloride 105 (98-107) mmol/L Carbon Dioxide 31 (21-32) mmol/L Anion Gap 4.0 (3-11) BUN 20 H (7-18) mg/dl Creatinine 1.01 (0.6-1.4) mg/dl Est Cr Clr Drug Dosing 104.4 ml/min Est GFR ( Amer) 95.9 ml/min Est GFR (Non-Af Amer) 82.8 ml/min BUN/Creatinine Ratio 20.0 (10-20) Glucose 87 (70-99) mg/dl Calcium 8.2 L (8.5-10.1) mg/dl Magnesium 2.5 H (1.8-2.4) mg/dl Total Bilirubin (0.2-1) mg/dl AST (15-37) U/L ALT (12-78) U/L Alkaline Phosphatase (45-117) U/L Troponin I < 0.015 (0-0.045) ng/ml Total Protein (6.4-8.2) gm/dl Albumin (3.4-5.0) gm/dl Globulin (2.5-4.0) gm/dl Albumin/Globulin Ratio (0.9-2) Triglycerides 105 (0-150) mg/dl Cholesterol 130 (0-200) mg/dl LDL Cholesterol, Calc 80 mg/dl VLDL Cholesterol, Calc 21 mg/dl HDL Cholesterol 29 mg/dl Cholesterol/HDL Ratio 5 Lipase (73-393) U/L COVID-19 Eval Order SARS-CoV-2 (PCR) NEGATIVE (Negative) 11/18/20 11/18/20 11/18/20 Range/Units 18:41 16:21 16:21 WBC 13.30 H (4.8-10.8) K/uL RBC 4.81 (4.7-6.1) M/uL Hgb 15.3 (14.0-18.0) g/dL Hct 43.7 (42-52) % MCV 90.9 (80-100) fL MCH 31.8 (25-34) pg MCHC 35.0 (32-36) g/dL RDW Std Deviation 42.7 (36.4-46.3) fL RDW Coeff of Adele 12.9 (11.5-14.5) % Plt Count 208 (130-400) K/uL MPV 10.1 (7.4-10.4) fL Immature Gran % (Auto) 2.0 % Neut % (Auto) 68.5 % Lymph % (Auto) 21.1 % [place] % (Auto) 7.4 % Eos % (Auto) 0.8 % Baso % (Auto) 0.2 % Neut # (Auto) 9.12 H (1.4-6.5) K/uL Lymph # (Auto) 2.80 (1.2-3.4) K/uL [place] # (Auto) 0.99 H (0.11-0.59) K/uL Eos # (Auto) 0.10 (0-0.5) K/uL Baso # (Auto) 0.02 (0-0.2) K/uL Immature Gran # (Auto) 0.27 H (0.00-0.02) K/uL APTT (21.0-31.0) Seconds PTT Ratio D-Dimer (0-500) ug/L FEU Sodium 142 (136-145) mmol/L Potassium 3.4 L (3.5-5.1) mmol/L Chloride 106 (98-107) mmol/L Carbon Dioxide 29 (21-32) mmol/L Anion Gap 7.0 (3-11) BUN 19 H (7-18) mg/dl Creatinine 1.20 (0.6-1.4) mg/dl Est Cr Clr Drug Dosing 87.4 ml/min Est GFR ( Amer) 77.9 ml/min Est GFR (Non-Af Amer) 67.2 ml/min BUN/Creatinine Ratio 15.5 (10-20) Glucose 109 H (70-99) mg/dl Calcium 8.5 (8.5-10.1) mg/dl Magnesium (1.8-2.4) mg/dl Total Bilirubin 0.4 (0.2-1) mg/dl AST 24 (15-37) U/L ALT 40 (12-78) U/L Alkaline Phosphatase 73 (45-117) U/L Troponin I < 0.015 (0-0.045) ng/ml Total Protein 7.1 (6.4-8.2) gm/dl Albumin 3.7 (3.4-5.0) gm/dl Globulin 3.4 (2.5-4.0) gm/dl Albumin/Globulin Ratio 1.1 (0.9-2) Triglycerides (0-150) mg/dl Cholesterol (0-200) mg/dl LDL Cholesterol, Calc mg/dl VLDL Cholesterol, Calc mg/dl HDL Cholesterol mg/dl Cholesterol/HDL Ratio Lipase 226 (73-393) U/L COVID-19 Eval Order Covid19 at [facility] SARS-CoV-2 (PCR) (Negative) 11/18/20 Range/Units 16:21 WBC (4.8-10.8) K/uL RBC (4.7-6.1) M/uL Hgb (14.0-18.0) g/dL Hct (42-52) % MCV (80-100) fL MCH (25-34) pg MCHC (32-36) g/dL RDW Std Deviation (36.4-46.3) fL RDW Coeff of Adele (11.5-14.5) % Plt Count (130-400) K/uL MPV (7.4-10.4) fL Immature Gran % (Auto) % Neut % (Auto) % Lymph % (Auto) % [place] % (Auto) % Eos % (Auto) % Baso % (Auto) % Neut # (Auto) (1.4-6.5) K/uL Lymph # (Auto) (1.2-3.4) K/uL [place] # (Auto) (0.11-0.59) K/uL Eos # (Auto) (0-0.5) K/uL Baso # (Auto) (0-0.2) K/uL Immature Gran # (Auto) (0.00-0.02) K/uL APTT 21.4 (21.0-31.0) Seconds PTT Ratio 0.8 D-Dimer 360 (0-500) ug/L FEU Sodium (136-145) mmol/L Potassium (3.5-5.1) mmol/L Chloride (98-107) mmol/L Carbon Dioxide (21-32) mmol/L Anion Gap (3-11) BUN (7-18) mg/dl Creatinine (0.6-1.4) mg/dl Est Cr Clr Drug Dosing ml/min Est GFR ( Amer) ml/min Est GFR (Non-Af Amer) ml/min BUN/Creatinine Ratio (10-20) Glucose (70-99) mg/dl Calcium (8.5-10.1) mg/dl Magnesium (1.8-2.4) mg/dl Total Bilirubin (0.2-1) mg/dl AST (15-37) U/L ALT (12-78) U/L Alkaline Phosphatase (45-117) U/L Troponin I (0-0.045) ng/ml Total Protein (6.4-8.2) gm/dl Albumin (3.4-5.0) gm/dl Globulin (2.5-4.0) gm/dl Albumin/Globulin Ratio (0.9-2) Triglycerides (0-150) mg/dl Cholesterol (0-200) mg/dl LDL Cholesterol, Calc mg/dl VLDL Cholesterol, Calc mg/dl HDL Cholesterol mg/dl Cholesterol/HDL Ratio Lipase (73-393) U/L COVID-19 Eval Order SARS-CoV-2 (PCR) (Negative) Medications Administered Current Inpatient Medications Acetaminophen (Acetaminophen 325 Mg Tab) 650 mg PO Q4H PRN PRN Reason: Pain or Fever Stop: 12/19/20 00:22 Acetaminophen/Codeine Phosphate (Acetaminophen W/Codeine #3 1 Tab) 1 tab PO Q6 PRN PRN Reason: Pain, Mild Stop: 12/19/20 00:22 Clonazepam (Clonazepam 1 Mg Tab) 1 mg PO TID PRN PRN Reason: Anxiety Stop: 12/19/20 00:22 Dicyclomine HCl (Dicyclomine Hcl 10 Mg Cap) 10 mg PO TID PRN PRN Reason: as directed Stop: 12/19/20 00:22 Famotidine (Famotidine 20 Mg Tab) 20 mg PO DAILY PRN PRN Reason: Heartburn Stop: 12/19/20 00:34 Fluticasone Propionate (Fluticasone Propionate Na Spr 16 Gm Btl) 2 sprays NA QAM SERGIO Stop: 12/19/20 08:59 Hydroxyzine HCl (Hydroxyzine Hcl 25 Mg Tab) 25 mg PO Q12 PRN PRN Reason: severe anxiety Stop: 12/19/20 00:22 Nitroglycerin (Nitroglycerin Sl 0.4 Mg/Tab Tab) 0.4 mg SL UD PRN PRN Reason: Chest Pain Stop: 12/19/20 00:22 Polyethylene Glycol (Polyethylene (Miralax) 17 Gm Pack) 17 gm PO DAILY PRN PRN Reason: Constipation Stop: 12/19/20 00:22 (1) Chest pain Chest pain type: unspecified Qualified Code(s): R07.9 - Chest pain, unspecified (2) Low back pain Back pain laterality: left Chronicity: acute Sciatica laterality: sciatica of left side Sciatica presence: with sciatica Qualified Code(s): M54.42 - Lumbago with sciatica, left side
[2020-11-19] MEDS ORDERED: FLUTICASONE PROPIONATE NA SPR 16 GM BTL SCH (09:00)
--- NOTE | 2020-11-19 11:05 | Cardiology Consultation ---
Date of Consultation November 19, 2020 Assessment & Plan (1) Chest pain: Patient is a 55-year-old male who presents with symptoms atypical for angina but concerning with heart burning and pounding. No signs of acute injury or ischemia with findings likely exacerbated by recent oral prednisone t reatment. Recommendations treat chronic back pain and gastroesophageal reflux. Complete evaluation post hospitalization with Lexiscan stress nuclear imaging. Patient previously unable to walk to diagnostic heart rate levels on treadmill now substantially limited by back pain, poorly tolerant of dobutamine stress testing Message sent to schedule (2) Low back pain: (3) GERD (gastroesophageal reflux disease): History of Present Illness Reason for Consultation: Epigastric and substernal chest pain Requesting Physician: Dr. West Attending Physician: Kaz West MD History of Present Illness Patient is a 55-year-old male referred for evaluation of symptoms of burning substernal and epigastric chest discomfort postprandial. His ongoing issues include 1. Chronic sinus bradycardia 2. Acute on chronic back pain 3. Cardiac catheterization 2010 without obstructive disease 4. Chronic gastroesophageal reflux Patient presents this admission noting having developed substernal and epigastric pain postprandially yesterday. He noted sensation of heart pain and stabbing discomfort through his mid chest and heart pounding hard and fast. He noted having completed a 5-day course of prednisone attempt to treat chronic back pain with marked indigestion and discomfort with prednisone therapies. Due to concerns regarding discomfort he presented to the emergency room for further evaluation. Since evaluation initial cardiac findings reflect no acute injury or ischemia including echo, EKG, enzymes. Ongoing issues per patient her back pain notes no fevers chills or unexplained infections. Notes no bleeding difficulties. Allergies Allergy/AdvReac Type Severity Reaction Status Date / Time pantoprazole Allergy Severe LEFT SIDED Verified 11/18/20 17:09 CHEST PAIN paroxetine Allergy Severe SHORTNESS Verified 11/18/20 17:09 OF BREATH Penicillins Allergy Severe HARD TO Verified 11/18/20 17:09 BREATH prednisone Allergy Severe TONGUE Verified 11/18/20 17:09 SWELLED, TIGHTNESS & BURNING IN CHEST, HEARTBURN. tramadol Allergy Severe HEAD Verified 11/18/20 17:09 SWELLS, SEES HALO amoxicillin Allergy Intermediate CHEST Verified 11/18/20 17:09 TIGHTNESS nizatidine Allergy Intermediate GI SYMPTOMS Verified 11/18/20 17:09 NSAIDS (Non-Steroidal Allergy Intermediate GI UPSET Verified 11/18/20 17:09 Anti-Inflamma HEART RACES ciprofloxacin Allergy Mild UNKNOWN Verified 11/18/20 17:09 citalopram Allergy Mild ANXIETY Verified 11/18/20 17:09 povidone-iodine Allergy Mild RASH WITH Verified 11/18/20 17:09 TOPICAL BETADINE clarithromycin Allergy Unknown PT DOESN'T Verified 11/18/20 17:09 KNOW omeprazole Allergy Unknown UNKNOWN Verified 11/18/20 17:09 Quinolones Allergy Unknown PT NOT SURE Verified 11/18/20 17:09 ranitidine Allergy Unknown PT CAN'T Verified 11/18/20 17:09 REMEMBER metronidazole AdvReac Intermediate BP Verified 11/18/20 17:09 ELEVATED DIARRHEA AND ANXIETY Home Medications Medication Instructions Recorded Confirmed Type cimetidine 400 mg PO DAILY PRN 05/28/18 11/18/20 History clonazepam 1 mg PO TID PRN 05/28/18 11/18/20 History fluticasone propionate 2 spray INTRANASAL QAM 05/28/18 11/18/20 History hydroxyzine HCl 25 mg PO Q12 PRN 05/28/18 11/18/20 History acetaminophen-codeine 1 tab PO Q6 PRN 11/10/20 11/18/20 History dicyclomine 10 mg PO TID PRN 11/10/20 11/18/20 History Patient History Medical History Anxiety Bradycardia Chronic back pain PAIN TO LEFT LEG Disc herniation GERD (gastroesophageal reflux disease) Migraine Temporomandibular joint disorder RIGHT SIDE CLICKS HAS NEVER LOCKED Tremor WITH ANXIETY PROBLEMS Surgical History H/O hand surgery LEFT HAND-THUMB NAIL REMOVAL History of anesthesia reaction "SLOW TO WAKE UP WITH ANESTHESIA" History of cholecystectomy History of colonoscopy History of cystoscopy History of esophagogastroduodenoscopy (EGD) History of lumbar discectomy History of lymph node dissection of left axilla 2/2 CAT SCRATCH FEVER History of tooth extraction WISDOM TEETH Family History Father Family history of diabetes mellitus Sister Family history of diabetes mellitus Social History Smoking Status: Never smoker Tobacco Type: Smokeless Tobacco (Dip or Chew) Cigarettes Per Day: FOR A COUPLE MONTHS IN HIS TEENS; Second Hand Exposure: No; Do You Dip or Chew Tobacco: Yes; Tobacco Cessation Education Requested by Patient: No Hx Alcohol Use: No Hx Substance Use: No Preferred Language: Bulgarian Communication Ability: Effective Visual Impairment: No Limitations Rn Cardiac Required: No Beliefs That Will Affect Care: None Current Living Situation: Parent Current Living Situation Comment: Lives with father to take care of him. Other Information That Helps Us Care for You: No Feels Safe at Home: No Is there a partner from a previous relationship who is making you feel unsafe now?: No Any Concerns about Your Family Situation: No Would You Like to Speak to Someone About Your Situation: No Assistive Devices: None Review of Systems Review of Systems: All systems reviewed & are unremarkable except as noted in HPI & below Physical Exam Constitutional: WD/WN, vitals as above Eyes: PERRL, conjunctivae normal, anicteric sclerae ENMT: external ear and nose normal, oropharynx normal Neck: trachea midline, no thyromegaly Respiratory: normal respiratory effort, lungs clear to auscultation Cardiovascular: Rate/Rhythm: regular rate and regular rhythm Heart Sounds: normal S1 and normal S2; no gallop and no murmur Palpation: normal PMI Vessels: normal carotid upstroke and radial pulses present; no JVD and no carotid bruit Extremities: no edema Gastrointestinal (Abdomen): normal bowel sounds, soft, nontender, no hepatosplenomegaly Musculoskeletal: no cyanosis or clubbing, extremities motor strength 5/5 Skin: no rashes, warm and dry Neurologic: PERRL, EOMI, accommodation nl, no face palsy, no dysarthria Psychiatric: A+Ox3, euthymic affect Results & Data ([facility]) Vital Signs (Past 12 Hours) Vital Signs Temp Pulse Pulse Resp BP Pulse Ox 11/19/20 08:14 36.8 C 51 L 16 111/62 96 11/19/20 07:29 46 L 11/19/20 04:00 36.6 C 66 18 113/65 95 11/19/20 03:38 42 L 11/19/20 01:36 36.5 C 43 L 18 128/73 98 Laboratory Results Laboratory Results - last 24 hr 11/18/20 11/18/20 11/18/20 16:21 16:21 16:21 WBC 13.30 H RBC 4.81 Hgb 15.3 Hct 43.7 MCV 90.9 MCH 31.8 MCHC 35.0 RDW Std Deviation 42.7 RDW Coeff of Adele 12.9 Plt Count 208 MPV 10.1 Immature Gran % (Auto) 2.0 Neut % (Auto) 68.5 Lymph % (Auto) 21.1 [place] % (Auto) 7.4 Eos % (Auto) 0.8 Baso % (Auto) 0.2 Neut # (Auto) 9.12 H Lymph # (Auto) 2.80 [place] # (Auto) 0.99 H Eos # (Auto) 0.10 Baso # (Auto) 0.02 Immature Gran # (Auto) 0.27 H APTT 21.4 PTT Ratio 0.8 D-Dimer 360 Sodium 142 Potassium 3.4 L Chloride 106 Carbon Dioxide 29 Anion Gap 7.0 BUN 19 H Creatinine 1.20 Est Cr Clr Drug Dosing 87.4 Est GFR ( Amer) 77.9 Est GFR (Non-Af Amer) 67.2 BUN/Creatinine Ratio 15.5 Glucose 109 H Calcium 8.5 Magnesium Total Bilirubin 0.4 AST 24 ALT 40 Alkaline Phosphatase 73 Troponin I < 0.015 Total Protein 7.1 Albumin 3.7 Globulin 3.4 Albumin/Globulin Ratio 1.1 Triglycerides Cholesterol LDL Cholesterol, Calc VLDL Cholesterol, Calc HDL Cholesterol Cholesterol/HDL Ratio Lipase 226 COVID-19 Eval Order SARS-CoV-2 (PCR) 11/18/20 11/18/20 11/19/20 18:41 18:41 05:20 WBC 11.76 H RBC 4.25 L Hgb 13.0 L Hct 39.0 L MCV 91.8 MCH 30.6 MCHC 33.3 RDW Std Deviation 44.5 RDW Coeff of Adele 13.4 Plt Count 173 MPV 10.0 Immature Gran % (Auto) 2.0 Neut % (Auto) 64.9 Lymph % (Auto) 21.2 [place] % (Auto) 10.4 Eos % (Auto) 1.4 Baso % (Auto) 0.1 Neut # (Auto) 7.65 H Lymph # (Auto) 2.49 [place] # (Auto) 1.22 H Eos # (Auto) 0.16 Baso # (Auto) 0.01 Immature Gran # (Auto) 0.23 H APTT PTT Ratio D-Dimer Sodium Potassium Chloride Carbon Dioxide Anion Gap BUN Creatinine Est Cr Clr Drug Dosing Est GFR ( Amer) Est GFR (Non-Af Amer) BUN/Creatinine Ratio Glucose Calcium Magnesium Total Bilirubin AST ALT Alkaline Phosphatase Troponin I Total Protein Albumin Globulin Albumin/Globulin Ratio Triglycerides Cholesterol LDL Cholesterol, Calc VLDL Cholesterol, Calc HDL Cholesterol Cholesterol/HDL Ratio Lipase COVID-19 Eval Order Covid19 at [facility] SARS-CoV-2 (PCR) NEGATIVE 11/19/20 11/19/20 05:20 08:46 WBC RBC Hgb Hct MCV MCH MCHC RDW Std Deviation RDW Coeff of Adele Plt Count MPV Immature Gran % (Auto) Neut % (Auto) Lymph % (Auto) [place] % (Auto) Eos % (Auto) Baso % (Auto) Neut # (Auto) Lymph # (Auto) [place] # (Auto) Eos # (Auto) Baso # (Auto) Immature Gran # (Auto) APTT PTT Ratio D-Dimer Sodium 141 Potassium 4.2 D Chloride 105 Carbon Dioxide 31 Anion Gap 4.0 BUN 20 H Creatinine 1.01 Est Cr Clr Drug Dosing 104.4 Est GFR ( Amer) 95.9 Est GFR (Non-Af Amer) 82.8 BUN/Creatinine Ratio 20.0 Glucose 87 Calcium 8.2 L Magnesium 2.5 H Total Bilirubin AST ALT Alkaline Phosphatase Troponin I < 0.015 < 0.015 Total Protein Albumin Globulin Albumin/Globulin Ratio Triglycerides 105 Cholesterol 130 LDL Cholesterol, Calc 80 VLDL Cholesterol, Calc 21 HDL Cholesterol 29 Cholesterol/HDL Ratio 5 Lipase COVID-19 Eval Order SARS-CoV-2 (PCR) (1) Low back pain Back pain laterality: left Chronicity: acute Sciatica laterality: sciatica of left side Sciatica presence: with sciatica Qualified Code(s): M54.42 - Lumbago with sciatica, left side (2) Chest pain Chest pain type: unspecified Qualified Code(s): R07.9 - Chest pain, unspecified
--- NOTE | 2020-11-19 14:40 | Electrocardiogram Report ---
Test Reason : Blood Pressure : / mmHG Vent. Rate : 043 BPM Atrial Rate : 043 BPM P-R Int : 184 ms QRS Dur : 108 ms QT Int : 466 ms P-R-T Axes : 059 039 019 degrees QTc Int : 393 ms Marked sinus bradycardia Voltage criteria for left ventricular hypertrophy Cannot rule out Septal infarct (cited on or before 10-JUN-2018) Abnormal ECG When compared with ECG of 18-NOV-2020 15:52, Vent. rate has decreased BY 25 BPM QRS duration has increased ST elevation now present in Anterolateral leads Nonspecific T wave abnormality no longer evident in Anterior leads Confirmed by Horace Rodriguez ([id number]) on 11/19/2020 2:40:18 PM Referred By: Katina Wong Confirmed By:Horace Rodriguez
--- NOTE | 2020-11-19 14:41 | Electrocardiogram Report ---
Test Reason : Blood Pressure : / mmHG Vent. Rate : 045 BPM Atrial Rate : 045 BPM P-R Int : 182 ms QRS Dur : 108 ms QT Int : 448 ms P-R-T Axes : 046 036 017 degrees QTc Int : 387 ms Sinus bradycardia Voltage criteria for left ventricular hypertrophy Cannot rule out Septal infarct (cited on or before 10-JUN-2018) Abnormal ECG When compared with ECG of 19-NOV-2020 06:35, (unconfirmed) No significant change was found Confirmed by Horace Rodriguez ([id number]) on 11/19/2020 2:40:39 PM Referred By: Katina Wong Confirmed By:Horace Rodriguez
[2020-11-19] MEDS ORDERED: LORazepam 0.5 MG TAB PO ONE (17:35)
--- NOTE | 2020-11-20 09:10 | Discharge Summary ---
Date of Service November 20, 2020 Admission HPI Per Admitting Provider A 55-year-old male with past medical history significant for nonallergic rhinitis; hypertension; history of sinus bradycardia; internal hemorrhoids; history of migraines; history of chest pain, noncardiac; obesity; generalized anxiety; allergy to radiographic contrast media,presents with chest pain. The patient says he is dealing with his back pain, has severe back pain. He was recently started on prednisone, took 4 to 5 days of prednisone. He says prednisone gave him pressure in his head and also not feeling well and some stomach discomfort and it was stooped patient yesterday. He is supposed to get MRI scan and for that he is supposed to follow up with his family doctor tomorrow to get approved by insurance.But today after mowing his grass he did fine, went back home, and after he ate sandwich he developed chest pressure radiating to left shoulder and arm. No dizziness, no nausea, no sweating. Apparently also had felt palpitations, so that is why he came to the hospital. Here initial workup is negative. Currently, pain is resolved, but he is most worried about his back pain. So initially he wanted to get discharged and wanted to go and follow up with his family doctor tomorrow for working out to get his MRI scan, but he agreed to stay when also said we will try to workup for his back pain too. Hemodynamically stable. Denies any headache, no blurred visions, no earache, no runny nose, no sore throat, no cough, no fevers. Appetite okay. Ambulating okay, but he has pain in his back and hips. Normal bowel and bladder movements. Admission Exam Per Admitting Provider GENERAL: The patient is obese, not in acute distress. VITAL SIGNS: Temperature 36.6, pulse 58, respiratory rate 14, blood pressure 108/71, oxygen 95% on room air. HEENT: Pupils are equal, round and reactive to light. Oral mucosa moist. NECK: No JVD. No masses. CARDIOVASCULAR: S1 and S2 heard. Regular rate and rhythm. No murmur, no gallop. RESPIRATORY SYSTEM: Normal AP diameter. No accessory muscles use. No wheezing, no crackles. ABDOMEN: Soft, bowel sounds present. Nontender. No distention. CENTRAL NERVOUS SYSTEM: Cranial nerves II-XII grossly intact, nonfocal. EXTREMITIES: No edema, no erythema. Principal Diagnosis Chest pain, atypical Back pain Pt left AMA Discharge Exam GENERAL: WD/WN M, not in acute distress. HEENT: NC/AT, Pupils are equal, round and reactive to light. Oral mucosa be[address]. NECK: No JVD. No masses. CARDIOVASCULAR: S1 and S2 heard. Regular rate and rhythm. No murmur, no gallop. RESPIRATORY: Normal AP diameter. No accessory muscles use. No wheezing, no crackles. CTAB. ABDOMEN: Soft, bowel sounds present. Nontender. No distention. NEURO: alert and oriented x3, speech fluent, no facial asymmetry, moves extremities EXTREMITIES: No edema, no erythema. Discharge Data Allergies Allergy/AdvReac Type Severity Reaction Status Date / Time pantoprazole Allergy Severe LEFT SIDED Verified 11/18/20 17:09 CHEST PAIN paroxetine Allergy Severe SHORTNESS Verified 11/18/20 17:09 OF BREATH Penicillins Allergy Severe HARD TO Verified 11/18/20 17:09 BREATH prednisone Allergy Severe TONGUE Verified 11/18/20 17:09 SWELLED, TIGHTNESS & BURNING IN CHEST, HEARTBURN. tramadol Allergy Severe HEAD Verified 11/18/20 17:09 SWELLS, SEES HALO amoxicillin Allergy Intermediate CHEST Verified 11/18/20 17:09 TIGHTNESS nizatidine Allergy Intermediate GI SYMPTOMS Verified 11/18/20 17:09 NSAIDS (Non-Steroidal Allergy Intermediate GI UPSET Verified 11/18/20 17:09 Anti-Inflamma HEART RACES ciprofloxacin Allergy Mild UNKNOWN Verified 11/18/20 17:09 citalopram Allergy Mild ANXIETY Verified 11/18/20 17:09 povidone-iodine Allergy Mild RASH WITH Verified 11/18/20 17:09 TOPICAL BETADINE clarithromycin Allergy Unknown PT DOESN'T Verified 11/18/20 17:09 KNOW omeprazole Allergy Unknown UNKNOWN Verified 11/18/20 17:09 Quinolones Allergy Unknown PT NOT SURE Verified 11/18/20 17:09 ranitidine Allergy Unknown PT CAN'T Verified 11/18/20 17:09 REMEMBER metronidazole AdvReac Intermediate BP Verified 11/18/20 17:09 ELEVATED DIARRHEA AND ANXIETY Consultations 11/18/20 19:10 ED Decision to Admit Stat 11/19/20 08:00 Consult Cardiology Routine Consult Orthopedic Surgery Routine Ordered Studies 11/19/20 15:38 MR lumbar spine wo con Routine Hospital Course (1) Chest pain: (2) Low back pain: This is a 55-year-old male who presents with chest pain. 1. Chest pain: Initial workup negative. Rule out ACS. Risk factor of age, obesity. Will follow serial enzymes - Troponin x3 negative. repeat EKG Echocardiogram - LV is normal in size. There is moderate concentric LVH. LV wall motion is normal. EF 60 to 65%. There is trace mitral regurg. There is trace tricuspid regurg. Cardiology consulted for further recommendations - No signs of acute injury or ischemia with findings likely exacerbated by recent oral prednisone treatment. Complete evaluation post hospitalization with Lexiscan stress nuclear imaging. Patient previously unable to walk to diagnostic heart rate levels on treadmill now substantially limited by back pain, poorly tolerant of dobutamine stress testing. Message sent to schedule 2. Severe back pain: Ongoing for some time limiting his ambulatory status. Presented on 10/27 and on 11/10 at ED, at that time CT was obtained showing Posterior decompression at the L5-S1 level. Mild to moderate central canal stenosis at L4-L5, suboptimally assessed by CT. He was prescribed prednisone which helped somewhat with back pain but also caused significant stomach and chest discomfort. Pt reported that he was supposed to get MRI scan, to be scheduled by PCP . Working out to get MRI scan. Orthopedics consulted - discussed w/ Dr. Cooley, will obtain MRI of lumbar spine - (MRI was ordered but pt left AMA prior to completing the study) 3. Generalized anxiety disorder: Continue his home medications. 4. Hypertension: Currently not on any medications. We will follow blood pressure in the hospital. DVT prophylaxis: Sequential compression devices. DISPOSITION: Pt left AMA Total Time Total Time Spent Total Time Spent (In Minutes): 0 Discharge Plan Discharge Items Patient Disposition: Against Medical Advice Reason For Visit: CHEST PAIN Activity: As commented below Activity Comment: as tolerated Non-emergency contact: Primary Care Provider Follow-up/Referrals: Chacorta Vegas MD [Primary Care Provider] - Pending Studies at Discharge: No Stand-Alone Forms: [employer], Smoking Cessation Medications and DC Order Prescriptions: Continued clonazepam 1 mg tablet 1 mg PO TID PRN (Reason: Anxiety) RF: 0 cimetidine 400 mg tablet 400 mg PO DAILY PRN (Reason: Heartburn) RF: 0 hydroxyzine HCl 25 mg tablet 25 mg PO Q12 PRN (Reason: severe anxiety) RF: 0 fluticasone propionate 50 mcg/actuation spray,suspension 2 spray Intranasal QAM RF: 0 acetaminophen-codeine 300-30 mg tablet 1 tab PO Q6 PRN (Reason: Pain, Mild) RF: 0 dicyclomine 10 mg capsule 10 mg PO TID PRN (Reason: as directed) RF: 0 Discharge Orders: Left Against Medical Advice (Routine); Ordered 11/19/20 Ordered By: Christopher Harvey Admission Data Admit Date/Time: 11/19/20 16:06 Attending Provider: Kaz West Admit Provider: Christopher Harvey Primary Care Provider: Chacorta Vegas Other Providers: Christopher Harvey ; Aston Bowden ; Sukhjinder Valadez ; Conrado Mcbride ; Amado Brian ; Jayant Cano ; Dawit Wallace ; Vaishali Zavala ; Trish Armstrong ; Jaja Mcdonald ; Raman Arnett ; Shukri Cooley Other Interventions: Discharge Summary Assessment (RN) Last Done: 11/19/20 20:35
== END 2020-11-19 20:15 | disposition left against medical advice (07) | DRG 313 ==
LOC: ED 15:44 → 2N 15:44